=== PATIENT | female | born 1990 | race African-American/Black ===

== ENCOUNTER 2017-07-16 11:47 | Day surgery (SDC) | payer BC ==
[2017-07-15 15:03] VITALS: BMI 34.4
[~2017-07-16] VITALS: Ht 157.5 cm; Wt 84.7 kg
[2017-07-16] VITALS (17 sets, daily range): BP systolic 118–135; BP diastolic 75–92; PULSE 62–79; RESP 10–20; Ht 157.5 cm; Wt 84.7 kg
[~2017-07-16 11:47] MED LIST: ALBU18HF INHALATION; BIRTH CONTROL PILLS PO; CEFAZOLIN 2 GM/50 ML (PMX) 50 ML IVPB SCH; SOD CHLORIDE 0.9% 1,000 ML IV SCH; SYMB80120 INHALATION
[2017-07-16] MEDS ORDERED: BUPIVACAINE 0.25% (MPF) 30 ML INJ ONE (14:00)
[2017-07-16] MEDS ORDERED: LIDOCAINE 2% (SDV) 5 ML INJ ONE (14:24)
[2017-07-16] MEDS ORDERED: MIDAZOLAM 1 MG/ML 2 ML INJ ONE (14:24)
[2017-07-16] MEDS ORDERED: FENTAnyl 50 MCG/ML VIAL ONE ×2 (14:24→15:22)
[2017-07-16] MEDS ORDERED: ROCURONIUM 50 MG INJ ONE (14:24)
[2017-07-16] MEDS ORDERED: PROPOFOL 20 ML ONE (14:24)
[2017-07-16] MEDS ORDERED: SUCCINYLCHOLINE CHLORIDE 100 MG/5 ML SYG IV ONE (14:30)
[2017-07-16] MEDS ORDERED: CEFAZOLIN 1 GM INJ ONE (14:32)
[2017-07-16] MEDS ORDERED: ONDANSETRON 4 MG INJ ONE ×2 (14:48→15:38)
[2017-07-16] MEDS ORDERED: DEXAMETHASONE 4 MG/ML 1 ML INJ ONE (14:48)
[2017-07-16] MEDS ORDERED: ROPIVACAINE 0.2% 20 ML VIAL ONE (14:57)
[2017-07-16] MEDS ORDERED: ALBUTEROL 0.083% (NEB) 2.5 MG/3 ML AMP ONE (15:02)
--- NOTE | 2017-07-16 15:08 | OPR ---
Date/Time of Note Date/Time of Note DATE: 07/16/17 TIME: 15:04 Operative Report Procedure Date: Jul 16, 2017 Preoperative Diagnosis symptomatic gallstones Postoperative Diagnosis same Operation/Procedure Performed 1. laparoscopic cholecystectomy 2. therapeutic injection of subcutaneous local anesthesia Surgeon see signature line Cma Or Lpn none Anesthesia Type: general Estimated Blood Loss: minimal Transfusion none Specimen gallbladder Grafts/Implants none Complications none Pt Condition Post Procedure: stable Indications This is a 27-year-old female with symptomatic gallstone. She requests surgical excision of her gallbladder. Risks alternatives benefits percent were discussed the patient. Patient expresses understanding and consents to the operation. Procedure Description Patient taken to the OR and prepped and draped in usual sterile fashion. Surgical timeout was performed. IV antibiotics were given. Informed local transverse incision was made with a 15 blade. Dissection Carrs carried onto the fascia. The fascia was grasped [place]'s and divided with curved [place] scissors. 0 Vicryl U stitch was placed to the fascia. Blueness on trocar is introduced pneumoperitoneum is established. Midepigastric 12 mm optical trocar right upper quadrant upper flank 5 mm optical trochars were placed under direct visualization. Upon initial inspection there are some adhesions to the gallbladder. This was taken down bluntly. The gallbladder was grasped and retracted in a lateral our direction. Careful dissection with the cautery was performed to rule out cystic duct dissection and mobilization. The critical view is established. The cystic duct was divided with 3 clips proximal and distally was divided with the 35 mm echelon vascular stapler due to thickened tissues. The cystic artery was divided with 3 clips proximal and clip distal. The gallbladder was taken of the gallbladder. There is good hemostasis. The gallbladder was retrieved using Endo Catch bag. Ports removed under direct visualization. 0 Vicryl U stitch was tied down. Skin was closed with interrupted and running 4-0 Monocryl. Therapeutic subcutaneous local anesthesia was injected throughout the incision site. Dry dressings were applied. Helen JAIMES Jul 16, 2017 15:08
[2017-07-16] MEDS ORDERED: SUGAMMADEX SODIUM 200 MG/2 ML VIAL IV ONE (15:14)
[2017-07-16] MEDS ORDERED: HYDROCODONE/APAP (5/325) TAB PO ONE (15:30)
[2017-07-16] MEDS ORDERED: MEPERIDINE 25 MG INJ ONE (15:38)
[2017-07-16] MEDS ORDERED: HYDROmorphONE (0.2 MG/ML) 10ML SYG IV ONE (15:38)
[2017-07-16] MEDS: HYDROmorphONE (0.2 MG/ML) 10ML SYG IV PRN ×4 (15:58→16:56)
[2017-07-16] MEDS: FENTAnyl 50 MCG/ML VIAL IV PRN ×2 (15:59→16:11)
[2017-07-16] MEDS ORDERED: ONDANSETRON 4 MG INJ IV PRN (16:00)
[2017-07-16] MEDS ORDERED: MEPERIDINE 25 MG INJ IV PRN (16:00)
== END 2017-07-16 17:55 | disposition home or self-care (01) ==
LOC: SDS 11:47
PROVIDERS: ATTEND Surgery
DX: K80.10 Calculus of gallbladder with chronic cholecystitis without obstruction (principal); J45.909 Unspecified asthma, uncomplicated
CPT/HCPCS: 47562; J0690; J1170; J2175; J2250; J2405; J2795; J3010; Z7512; Z7610; 84703; 88304; J1100